=== PATIENT | female | born 1950 | race American Indian/Alaskan Native ===

== ENCOUNTER 2017-03-20 11:43 | Inpatient (IN) | payer MEDICAID ==
[2017-03-20 12:54] LABS: Basophils % (Auto) 0.4 % (0.0-1.8); Eosinophils % (Auto) 0.6 % (0.0-4.3); Hematocrit 33.9 % (30.3-42.9); Hemoglobin 10.7 gm/dl (10.1-14.3); Mean Corpuscular HGB Conc 32 % (30-34); Mean Corpuscular Volume 82 fl (79-97); Platelet Count 173 K/mm3 (140-440); Red Blood Count 4.15 M/mm3 (3.65-5.03); Red Cell Distribution Width 15.9 % (13.2-15.2); White Blood Count 6.9 K/mm3 (4.5-11.0)
[2017-03-20 12:56] LABS: Anion Gap 17 mmol/L; Blood Urea Nitrogen 14 mg/dL (7-17); Calcium 8.8 mg/dL (8.4-10.2); Carbon Dioxide 26 mmol/L (22-30); Chloride 103.3 mmol/L (98-107); Glucose 314 mg/dL (65-100); Potassium 4.8 mmol/L (3.6-5.0); Sodium 141 mmol/L (137-145)
[2017-03-20 12:58] LABS: Mean Corpuscular Hemoglobin 26 pg (28-32)
--- NOTE | 2017-03-20 16:52 | Emergency Department Report ---
ED General Adult HPI - General Chief complaint: Chest Pain Stated complaint: CHEST/HAND PAIN Time Seen by Provider: 03/20/17 16:39 Source: patient Mode of arrival: Ambulatory Limitations: No Limitations - History of Present Illness Initial comments: This is a 66-year-old female. She is previously unknown to me. The patient has been here for 1 month from [facility]. Past medical history includes stroke, heart disease with stent 2, she reports noncompliance with the recommended life vest, and reports that she ran out of her aspirin and Plavix yesterday. She presents to the ER complaining of substernal chest pressure and left-sided chest discomfort. There is no nausea, vomiting or diaphoresis. There is chronic lower extremity swelling, which is not new, worsening or different. There is no diaphoresis. The patient reports that she presented to the ER because her balance bridge assembler up in [place] told her to come to the ER if she had symptoms as she has just described. No recent trips greater than 4 hours. No recent hospitalizations. No recent surgeries. -: Gradual Location: chest, abdomen Radiation: non-radiation Quality: aching Consistency: intermittent Improves with: none Worsens with: none Associated Symptoms: chest pain - Related Data Home Medications Medication Instructions Recorded Confirmed Last Taken Aspirin [Adult Low Dose Aspirin EC] 81 mg PO BID 03/20/17 03/20/17 Unknown AtorvaSTATin [Lipitor] 40 mg PO QDAY 03/20/17 03/20/17 Unknown AtorvaSTATin [Lipitor] 40 mg PO QHS 03/20/17 03/20/17 03/19/17 Clopidogrel [Plavix] 75 mg PO QDAY 03/20/17 03/20/17 Unknown Clopidogrel [Plavix] 75 mg PO QDAY 03/20/17 03/20/17 03/19/17 Enalapril Maleate [Vasotec] 5 mg PO BID 03/20/17 03/20/17 Unknown Enalapril Maleate [Vasotec] 5 mg PO BID 03/20/17 03/20/17 03/19/17 Gabapentin [Neurontin] 300 mg PO BID 03/20/17 03/20/17 Unknown Gabapentin [Neurontin] 300 mg PO BID 03/20/17 03/20/17 03/05/17 Insulin Glargine [Lantus] 0 units SQ QHS 03/20/17 03/20/17 03/19/17 Insulin Glargine,Hum.rec.anlog 41 units SC QHS 03/20/17 03/20/17 Unknown [Lantus Solostar] Insulin Glargine,Hum.rec.anlog 100 unit SQ DAILY 03/20/17 03/20/17 03/20/17 [Lantus Solostar] Insulin Lispro [Humalog 100 0 units SQ AC 03/20/17 03/20/17 03/20/17 UNITS/ML Kwikpen] Insulin Lispro [Humalog 100 10 units SC QDAY 03/20/17 03/20/17 Unknown UNITS/ML Kwikpen] Metformin HCl [Glucophage] 500 mg PO BID 03/20/17 03/20/17 Unknown Metoprolol Xl [Metoprolol 50 mg PO QDAY 03/20/17 03/20/17 Unknown SUCCINATE ER TAB] Metoprolol [Lopressor TAB] 50 mg PO DAILY 03/20/17 03/20/17 03/19/17 metFORMIN [Glucophage] 500 mg PO BID 03/20/17 03/20/17 03/19/17 Allergies Allergy/AdvReac Type Severity Reaction Status Date / Time No Known Allergies Allergy Verified 03/20/17 20:10 ED Review of Systems ROS: Stated complaint: CHEST/HAND PAIN Other details as noted in HPI Constitutional: denies: malaise Eyes: denies: vision change ENT: denies: epistaxis Respiratory: denies: orthopnea Cardiovascular: chest pain Gastrointestinal: abdominal pain Genitourinary: denies: dysuria Musculoskeletal: denies: back pain Skin: denies: lesions Neurological: weakness ED Past Medical Hx - Past Medical History Previous Medical History?: Yes Hx CVA: Yes (effected right side 2016) Hx Diabetes: Yes (insulin dependenet and pills) Additional medical history: right eye glaucoma, cardiac stents x 2 - Surgical History Hx Cholecystectomy: Yes - Social History Smoking Status: Never Smoker Substance Use Type: None - Medications Home Medications: Home Medications Medication Instructions Recorded Confirmed Last Taken Type Aspirin [Adult Low Dose Aspirin EC] 81 mg PO BID 03/20/17 03/20/17 Unknown History AtorvaSTATin [Lipitor] 40 mg PO QDAY 03/20/17 03/20/17 Unknown History AtorvaSTATin [Lipitor] 40 mg PO QHS 03/20/17 03/20/17 03/19/17 History Clopidogrel [Plavix] 75 mg PO QDAY 03/20/17 03/20/17 Unknown History Clopidogrel [Plavix] 75 mg PO QDAY 03/20/17 03/20/17 03/19/17 History Enalapril Maleate [Vasotec] 5 mg PO BID 03/20/17 03/20/17 Unknown History Enalapril Maleate [Vasotec] 5 mg PO BID 03/20/17 03/20/17 03/19/17 History Gabapentin [Neurontin] 300 mg PO BID 03/20/17 03/20/17 Unknown History Gabapentin [Neurontin] 300 mg PO BID 03/20/17 03/20/17 03/05/17 History Insulin Glargine [Lantus] 0 units SQ QHS 03/20/17 03/20/17 03/19/17 History Insulin Glargine,Hum.rec.anlog 41 units SC QHS 03/20/17 03/20/17 Unknown History [Lantus Solostar] Insulin Glargine,Hum.rec.anlog 100 unit SQ DAILY 03/20/17 03/20/17 03/20/17 History [Lantus Solostar] Insulin Lispro [Humalog 100 0 units SQ AC 03/20/17 03/20/17 03/20/17 History UNITS/ML Kwikpen] Insulin Lispro [Humalog 100 10 units SC QDAY 03/20/17 03/20/17 Unknown History UNITS/ML Kwikpen] Metformin HCl [Glucophage] 500 mg PO BID 03/20/17 03/20/17 Unknown History Metoprolol Xl [Metoprolol 50 mg PO QDAY 03/20/17 03/20/17 Unknown History SUCCINATE ER TAB] Metoprolol [Lopressor TAB] 50 mg PO DAILY 03/20/17 03/20/17 03/19/17 History metFORMIN [Glucophage] 500 mg PO BID 03/20/17 03/20/17 03/19/17 History ED Physical Exam - General Limitations: No Limitations General appearance: alert, in no apparent distress - Head Head exam: Present: atraumatic, normocephalic - Eye Eye exam: Present: normal appearance, EOMI. Absent: nystagmus - ENT ENT exam: Present: normal exam, normal orophraynx, mucous membranes moist, normal external ear exam - Neck Neck exam: Present: normal inspection, full ROM. Absent: tenderness, meningismus - Respiratory Respiratory exam: Present: normal lung sounds bilaterally. Absent: respiratory distress, wheezes, rales, rhonchi, stridor, chest wall tenderness, accessory muscle use, decreased breath sounds, prolonged expiratory - Cardiovascular Cardiovascular Exam: Present: normal rhythm, bradycardia, normal heart sounds. Absent: systolic murmur, diastolic murmur, rubs, gallop - GI/Abdominal GI/Abdominal exam: Present: soft, normal bowel sounds. Absent: distended, tenderness, guarding, rebound, rigid, pulsatile mass - Extremities Exam Extremities exam: Present: normal inspection, full ROM, normal capillary refill. Absent: pedal edema, joint swelling, calf tenderness - Back Exam Back exam: Present: normal inspection, full ROM. Absent: tenderness, CVA tenderness (R), CVA tenderness (L), muscle spasm, paraspinal tenderness, vertebral tenderness - Neurological Exam Neurological exam: Present: alert, oriented X3, other (Extraocular movements intact. Tongue midline. No facial droop. Facial sensation intact to light touch in the V1, V2, V3 distribution bilaterally. 5 and 5 strength in 4 extremities.. Sensation is intact to light touch in 4 extremities.). Absent: motor sensory deficit - Psychiatric Psychiatric exam: Present: normal affect, normal mood - Skin Skin exam: Present: warm, dry, intact, normal color. Absent: rash ED Course Vital Signs 03/20/17 03/20/17 03/20/17 12:06 16:16 16:20 Temperature 98.4 F Pulse Rate 59 L 70 67 Respiratory 16 14 16 Rate Blood Pressure 151/65 Blood Pressure [Left] O2 Sat by Pulse 99 99 Oximetry 03/20/17 03/20/17 03/20/17 16:30 16:40 16:50 Temperature Pulse Rate 56 L 55 L 58 L Respiratory 15 16 12 Rate Blood Pressure 161/60 161/60 161/60 Blood Pressure [Left] O2 Sat by Pulse 98 100 100 Oximetry 03/20/17 03/20/17 03/20/17 17:00 17:10 17:29 Temperature Pulse Rate 62 64 64 Respiratory 11 L 16 16 Rate Blood Pressure 161/60 166/71 Blood Pressure 166/71 [Left] O2 Sat by Pulse 100 100 100 Oximetry 03/20/17 20:00 Temperature Pulse Rate 57 L Respiratory 16 Rate Blood Pressure Blood Pressure 150/62 [Left] O2 Sat by Pulse 97 Oximetry - Reevaluation(s) Reevaluation #1: 03/20/17 17:44 case is presented to cardiology, Dr. Morin, who will follow as a consult ED Medical Decision Making - Lab Data Result diagrams: 03/20/17 19:45 03/20/17 18:10 Vital Signs 03/20/17 12:06 Temperature 98.4 F Pulse Rate 59 L Respiratory 16 Rate Blood Pressure 151/65 O2 Sat by Pulse 99 Oximetry Lab Results 03/20/17 03/20/17 03/20/17 Range/Units 12:17 12:24 12:24 WBC 6.9 (4.5-11.0) K/mm3 RBC 4.15 (3.65-5.03) M/mm3 Hgb 10.7 (10.1-14.3) gm/dl Hct 33.9 (30.3-42.9) % MCV 82 (79-97) fl MCH 26 L (28-32) pg MCHC 32 (30-34) % RDW 15.9 H (13.2-15.2) % Plt Count 173 (140-440) K/mm3 Lymph % (Auto) 38.2 H (13.4-35.0) % [place] % (Auto) 8.8 H (0.0-7.3) % Eos % (Auto) 0.6 (0.0-4.3) % Baso % (Auto) 0.4 (0.0-1.8) % Lymph # 2.6 (1.2-5.4) K/mm3 [place] # 0.6 (0.0-0.8) K/mm3 Eos # 0.0 (0.0-0.4) K/mm3 Baso # 0.0 (0.0-0.1) K/mm3 Seg Neutrophils % 52.0 (40.0-70.0) % Seg Neutrophils # 3.6 (1.8-7.7) K/mm3 Sodium 141 (137-145) mmol/L Potassium 4.8 (3.6-5.0) mmol/L Chloride 103.3 (98-107) mmol/L Carbon Dioxide 26 (22-30) mmol/L Anion Gap 17 mmol/L BUN 14 (7-17) mg/dL Creatinine 0.7 (0.7-1.2) mg/dL Estimated GFR > 60 ml/min BUN/Creatinine Ratio 20.00 % Glucose 314 H (65-100) mg/dL POC Glucose 369 H (70-105) Calcium 8.8 (8.4-10.2) mg/dL Troponin T < 0.010 (0.00-0.029) ng/mL 03/20/ Range/Units 15:06 WBC (4.5-11.0) K/mm3 RBC (3.65-5.03) M/mm3 Hgb (10.1-14.3) gm/dl Hct (30.3-42.9) % MCV (79-97) fl MCH (28-32) pg MCHC (30-34) % RDW (13.2-15.2) % Plt Count (140-440) K/mm3 Lymph % (Auto) (13.4-35.0) % [place] % (Auto) (0.0-7.3) % Eos % (Auto) (0.0-4.3) % Baso % (Auto) (0.0-1.8) % Lymph # (1.2-5.4) K/mm3 [place] # (0.0-0.8) K/mm3 Eos # (0.0-0.4) K/mm3 Baso # (0.0-0.1) K/mm3 Seg Neutrophils % (40.0-70.0) % Seg Neutrophils # (1.8-7.7) K/mm3 Sodium (137-145) mmol/L Potassium (3.6-5.0) mmol/L Chloride (98-107) mmol/L Carbon Dioxide (22-30) mmol/L Anion Gap mmol/L BUN (7-17) mg/dL Creatinine (0.7-1.2) mg/dL Estimated GFR ml/min BUN/Creatinine Ratio % Glucose (65-100) mg/dL POC Glucose (70-105) Calcium (8.4-10.2) mg/dL Troponin T < 0.010 (0.00-0.029) ng/mL - EKG Data -: EKG Interpreted by Me - EKG Data 03/20/17 17:28 EKG #1 demonstrates sinus, 64 bpm, poor R-wave progression, T-wave inversions 1 in aVL, abnormal EKG, morphologically not consistent with STEMI, there is no prior. EKG #2 demonstrates sinus bradycardia, T-wave inversions V1, lead aVL, poor R wave progression, nonspecific ST abnormality in the anteroseptal leads. - Radiology Data Radiology results: image reviewed interpreted by me: X-ray of the chest is negative for acute disease - Medical Decision Making Differential diagnosis: GERD, gastritis, pancreatitis, pneumonia, acute coronary syndrome/unstable angina assessment and plan: 66-year-old female who is visiting from out of town, heart disease with stent 2, noncompliant with recommended life vest therapy by her own recollection, with atypical chest pain, and abnormal EKG without prior for comparison. We attempted to contact the patient's [facility] in [place] ([facility]), however medical records department was closed, and we are unable to obtain her old medical records. Clinically doubt pancreatitis, no abdominal tenderness. X-ray of the chest consistent with pneumonia, and patient low risk by well's criteria for pulmonary embolus. Given abnormal EKG, atypical symptoms, noncompliance with recommended outpatient therapy, lack of close outpatient follow-up, patient to be admitted for acute coronary syndrome risk stratification. The case is presented to the Hospital physician, Dr. Velásquez, who graciously accepts the patient to his service. Critical care attestation.: If time is entered above; I have spent that time in minutes in the direct care of this critically ill patient, excluding procedure time. ED Disposition Clinical Impression: Chest pain, Abnormal EKG Disposition: -09 OP ADMIT IP TO THIS HOSP Is pt being admited?: Yes Condition: Stable
[2017-03-20] MEDS ORDERED: CARAFATE PO ONE (17:00)
[2017-03-20] MEDS ORDERED: PEPCID IV ONE (17:00)
[2017-03-20] MEDS ORDERED: ASPIRIN PO ONE (17:00)
[2017-03-20] MEDS ORDERED: ALUM-MAG HYDROX-SIMETH 200-200-20MG/5ML PO ONE (17:00)
[2017-03-20 18:01] LABS: INR 0.94 (0.87-1.13)
--- NOTE | 2017-03-20 18:36 | History and Physical Report ---
History of Present Illness Chief complaint: my chest hurts History of present illness: 66 YO Female with CVA, DM, CAD S/P Stent placement, Cardiomyopathy, Noncompliant with life vest, Noncompliant with medication presents to ED for evaluation. Pt states that she has experienced pain in her chest for the past 1 day with worsening symptoms over the past 4 hours. Pain is 3/10 in severity, epigastric, nonradiating, aching, not worsened with exertion, or relieved with rest, no associated with shortness of breath. Pt denies fever chills, palpitations, NVD, syncope, BRBPR, hemoptysis, productive cough, or trauma. Past History Past Medical History: CAD, diabetes, stroke Past Surgical History: Other (Stent placement) Social history: single. denies: smoking, alcohol abuse, prescription drug abuse , IV drug use Family history: CAD, hypertension Medications and Allergies Allergies Allergy/AdvReac Type Severity Reaction Status Date / Time No Known Allergies Allergy Verified 03/20/17 20:10 Home Medications Medication Instructions Recorded Confirmed Last Taken Type Aspirin [Adult Low Dose Aspirin EC] 81 mg PO BID 03/20/17 03/20/17 Unknown History AtorvaSTATin [Lipitor] 40 mg PO QDAY 03/20/17 03/20/17 Unknown History AtorvaSTATin [Lipitor] 40 mg PO QHS 03/20/17 03/20/17 03/19/17 History Clopidogrel [Plavix] 75 mg PO QDAY 03/20/17 03/20/17 Unknown History Clopidogrel [Plavix] 75 mg PO QDAY 03/20/17 03/20/17 03/19/17 History Enalapril Maleate [Vasotec] 5 mg PO BID 03/20/17 03/20/17 Unknown History Enalapril Maleate [Vasotec] 5 mg PO BID 03/20/17 03/20/17 03/19/17 History Gabapentin [Neurontin] 300 mg PO BID 03/20/17 03/20/17 Unknown History Gabapentin [Neurontin] 300 mg PO BID 03/20/17 03/20/17 03/05/17 History Insulin Glargine [Lantus] 0 units SQ QHS 03/20/17 03/20/17 03/19/17 History Insulin Glargine,Hum.rec.anlog 41 units SC QHS 03/20/17 03/20/17 Unknown History [Lantus Solostar] Insulin Glargine,Hum.rec.anlog 100 unit SQ DAILY 03/20/17 03/20/17 03/20/17 History [Lantus Solostar] Insulin Lispro [Humalog 100 0 units SQ AC 03/20/17 03/20/17 03/20/17 History UNITS/ML Kwikpen] Insulin Lispro [Humalog 100 10 units SC QDAY 03/20/17 03/20/17 Unknown History UNITS/ML Kwikpen] Metformin HCl [Glucophage] 500 mg PO BID 03/20/17 03/20/17 Unknown History Metoprolol Xl [Metoprolol 50 mg PO QDAY 03/20/17 03/20/17 Unknown History SUCCINATE ER TAB] Metoprolol [Lopressor TAB] 50 mg PO DAILY 03/20/17 03/20/17 03/19/17 History metFORMIN [Glucophage] 500 mg PO BID 03/20/17 03/20/17 03/19/17 History Review of Systems Constitutional: no weight loss, no weight gain Ears, nose, mouth and throat: no ear pain, no ear discharge, no tinnitis Breasts: no change in shape, no swelling Cardiovascular: chest pain, no rapid/irregular heart beat, no lightheadedness, no shortness of breath, no dyspnea on exertion, no paroxysmal nocturnal dyspnea Respiratory: no cough, no cough with sputum, no excessive sputum Gastrointestinal: no abdominal pain, no nausea, no vomiting, no diarrhea Genitourinary Female: no dyspareunia, no pelvic pain, no flank pain, no menorrhagia Rectal: no pain, no incontinence, no bleeding Musculoskeletal: no neck stiffness, no neck pain, no shooting arm pain Integumentary: no rash, no pruritis, no redness Neurological: no head injury, no transient paralysis, no paralysis, no parathesias Psychiatric: no anxiety, no memory loss, no change in sleep habits, no sleep disturbances Endocrine: no cold intolerance, no heat intolerance, no polyphagia, no excessive thirst Hematologic/Lymphatic: no easy bruising, no easy bleeding Allergic/Immunologic: no urticaria, no allergic rhinitis, no wheezing Exam - Constitutional Vitals: Temp Pulse Resp BP Pulse Ox 98.4 F 64 16 166/71 100 03/20/17 12:06 03/20/17 17:29 03/20/17 17:29 03/20/17 17:29 03/20/17 17:29 General appearance: Present: obese - EENT Eyes: Present: PERRL ENT: hearing intact, clear oral mucosa - Neck Neck: Present: supple, normal ROM - Respiratory Respiratory effort: normal Respiratory: bilateral: CTA - Cardiovascular Heart Sounds: Present: S1 & S2. Absent: rub, click - Extremities Extremities: pulses symmetrical, No edema Peripheral Pulses: within normal limits - Abdominal General gastrointestinal: Present: soft, non-tender, non-distended, normal bowel sounds Female genitourinary: Present: normal - Integumentary Integumentary: Present: clear, warm, dry - Musculoskeletal Musculoskeletal: gait normal, strength equal bilaterally - Psychiatric Psychiatric: appropriate mood/affect, intact judgment & insight - Neurologic Neurologic: CNII-XII intact, moves all extremities Results - Labs CBC & Chem 7: 03/20/17 19:45 03/20/17 18:10 Labs: Abnormal lab results 03/20/17 03/20/17 03/20/17 Range/Units 12:17 12:24 12:24 MCH 26 L (28-32) pg RDW 15.9 H (13.2-15.2) % Lymph % (Auto) 38.2 H (13.4-35.0) % [place] % (Auto) 8.8 H (0.0-7.3) % Glucose 314 H (65-100) mg/dL POC Glucose 369 H (70-105) Assessment and Plan - Patient Problems (1) ACS (acute coronary syndrome) Current Visit: Yes Status: Acute Plan to address problem: Serial cardiac enzymes, ekg, telemetry, cardiology consulted in ED, Records request from hospital where previous care conducted. (2) Accelerated hypertension Current Visit: Yes Status: Acute Plan to address problem: Resume home medication, monitor bp q shift, (3) Noncompliance Current Visit: Yes Status: Acute Plan to address problem: Pt counseled, (4) Diabetes Current Visit: Yes Status: Acute Qualifiers: Diabetes mellitus type: D Diabetes mellitus complication status: D Diabetes mellitus complication detail: D Diabetic retinopathy severity: D Proliferative retinopathy type: P Diabetes mellitus macular edema: D Diabetes mellitus care home insulin use: D Laterality: L Chronic kidney disease stage: C Plan to address problem: ADA diet, insulin accu check (5) Metabolic syndrome Current Visit: Yes Status: Acute Plan to address problem: Increased physical activity, balanced diet, (6) DVT prophylaxis Current Visit: Yes Status: Acute
[2017-03-20] MEDS ORDERED: DULCOLAX PR PRN (18:48)
[2017-03-20] MEDS ORDERED: MILK OF MAGNESIA PO PRN (18:48)
[2017-03-20] MEDS ORDERED: ZOFRAN IV PRN (18:48)
[2017-03-20] MEDS ORDERED: TYLENOL PO PRN (18:48)
[2017-03-20] MEDS ORDERED: SODIUM CHLORIDE FLUSH SYRINGE 10 ML IV PRN (18:49)
[2017-03-20 19:47] LABS: Anion Gap 19 mmol/L; Blood Urea Nitrogen 13 mg/dL (7-17); Calcium 9.2 mg/dL (8.4-10.2); Carbon Dioxide 24 mmol/L (22-30); Chloride 102.7 mmol/L (98-107); Glucose 181 mg/dL (65-100); Potassium 4.1 mmol/L (3.6-5.0); Sodium 142 mmol/L (137-145)
[2017-03-20 20:04] LABS: Basophils % (Auto) 0.4 % (0.0-1.8); Eosinophils % (Auto) 0.9 % (0.0-4.3); Hematocrit 33.6 % (30.3-42.9); Mean Corpuscular HGB Conc 33 % (30-34); Mean Corpuscular Hemoglobin 26 pg (28-32); Mean Corpuscular Volume 80 fl (79-97); Platelet Count 164 K/mm3 (140-440); Red Blood Count 4.19 M/mm3 (3.65-5.03); Red Cell Distribution Width 15.8 % (13.2-15.2); White Blood Count 6.4 K/mm3 (4.5-11.0)
[2017-03-20] MEDS ORDERED: D50W (25GM) Syringe IV PRN (20:44)
[2017-03-20] MEDS: NOVOLOG SUB-Q SCH (21:27)
--- NOTE | 2017-03-21 07:21 | XRay Report ---
AP CHEST: HISTORY: chest pain AP view of the chest demonstrates a normal mediastinal and cardiac contour with clear lungs and normal bony and soft tissue structures. IMPRESSION: Unremarkable AP chest.
[2017-03-21] MEDS: TOPROL XL PO SCH (09:08)
[2017-03-21] MEDS: NOVOLOG SUB-Q SCH ×4 (09:13→21:37)
[2017-03-21] MEDS: HALFPRIN EC PO SCH ×2 (09:18→21:36)
[2017-03-21] MEDS ORDERED: LEXISCAN IV ONE ×2 (11:25→11:34)
--- NOTE | 2017-03-21 12:28 | Consultation ---
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 She attributes her pain to "heart burn". She recently relocated to [place] from [place]. She has not yet established a direct support staff in [place] but believes she will be in [place] until at least next year. 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 Her direct support staff in [place] told her to go to an ED if she developed cardiac symptoms. She denies any SOB, palpitations, n/v, diaphoresis, dizziness or syncope. On evaluation, her chest pain has resolved. Past History Past Medical History: CAD, diabetes, hypertension, hyperlipidemia, stroke Social history: single. denies: smoking, alcohol abuse, prescription drug abuse , IV drug use Family history: CAD, hypertension Medications and Allergies Allergies Allergy/AdvReac Type Severity Reaction Status Date / Time No Known Allergies Allergy Verified 03/20/17 20:10 Home Medications Medication Instructions Recorded Confirmed Last Taken Type Aspirin [Adult Low Dose Aspirin EC] 81 mg PO BID 03/20/17 03/20/17 Unknown History AtorvaSTATin [Lipitor] 40 mg PO QDAY 03/20/17 03/20/17 Unknown History AtorvaSTATin [Lipitor] 40 mg PO QHS 03/20/17 03/20/17 03/19/17 History Clopidogrel [Plavix] 75 mg PO QDAY 03/20/17 03/20/17 Unknown History Clopidogrel [Plavix] 75 mg PO QDAY 03/20/17 03/20/17 03/19/17 History Enalapril Maleate [Vasotec] 5 mg PO BID 03/20/17 03/20/17 Unknown History Enalapril Maleate [Vasotec] 5 mg PO BID 03/20/17 03/20/17 03/19/17 History Gabapentin [Neurontin] 300 mg PO BID 03/20/17 03/20/17 Unknown History Gabapentin [Neurontin] 300 mg PO BID 03/20/17 03/20/17 03/05/17 History Insulin Glargine [Lantus] 0 units SQ QHS 03/20/17 03/20/17 03/19/17 History Insulin Glargine,Hum.rec.anlog 41 units SC QHS 03/20/17 03/20/17 Unknown History [Lantus Solostar] Insulin Glargine,Hum.rec.anlog 100 unit SQ DAILY 03/20/17 03/20/17 03/20/17 History [Lantus Solostar] Insulin Lispro [Humalog 100 0 units SQ AC 03/20/17 03/20/17 03/20/17 History UNITS/ML Kwikpen] Insulin Lispro [Humalog 100 10 units SC QDAY 03/20/17 03/20/17 Unknown History UNITS/ML Kwikpen] Metformin HCl [Glucophage] 500 mg PO BID 03/20/17 03/20/17 Unknown History Metoprolol Xl [Metoprolol 50 mg PO QDAY 03/20/17 03/20/17 Unknown History SUCCINATE ER TAB] Metoprolol [Lopressor TAB] 50 mg PO DAILY 03/20/17 03/20/17 03/19/17 History metFORMIN [Glucophage] 500 mg PO BID 03/20/17 03/20/17 03/19/17 History Active Meds: Active Medications Acetaminophen (Tylenol) 650 mg PO Q4H PRN PRN Reason: Pain MILD(1-3)/Fever >100.5/SUMMERS Aspirin (Halfprin Ec) 81 mg PO BID [facility] Last Admin: 03/21/17 09:18 Dose: 81 mg Atorvastatin Calcium (Lipitor) 40 mg PO QHS [facility] Bisacodyl (Dulcolax) 10 mg MD QDAY PRN PRN Reason: Constipation unrelieved by MOM Clopidogrel Bisulfate (Plavix) 75 mg PO QDAY [facility] Dextrose (D50w (25gm)) 50 ml IV PRN PRN PRN Reason: Hypoglycemia Insulin Aspart (Novolog) 0 units SUB-Q ACHS CK PRN Reason: Protocol Last Admin: 03/21/17 09:13 Dose: 4 units Magnesium Hydroxide (Milk Of Magnesia) 30 ml PO Q4H PRN PRN Reason: Constipation Metoprolol Succinate (Toprol Xl) 50 mg PO QDAY CK Last Admin: 03/21/17 09:08 Dose: 50 mg Ondansetron HCl (Zofran) 4 mg IV Q8H PRN PRN Reason: N/V unrelieved by Reglan Sodium Chloride (Sodium Chloride Flush Syringe 10 Ml) 10 ml IV PRN PRN PRN Reason: LINE FLUSH Review of Systems Constitutional: no weight loss, no weight gain, no fever, no chills, no sweats Ears, nose, mouth and throat: no ear pain, no nose pain, no sinus pressure, no sinus pain Cardiovascular: chest pain, no orthopnea, no palpitations, no rapid/irregular heart beat, no edema, no syncope, no lightheadedness, no shortness of breath, no dyspnea on exertion, no paroxysmal nocturnal dyspnea, no leg edema Respiratory: no cough, no shortness of breath, no dyspnea on exertion, no congestion, no wheezing, no pain on inspiration Gastrointestinal: indigestion, no abdominal pain, no nausea, no vomiting, no diarrhea, no constipation, no change in bowel habits Genitourinary Female: no dyspareunia, no pelvic pain, no flank pain, no dysuria , no urinary frequency Musculoskeletal: muscle weakness (right sided residual from CVA ), no neck stiffness, no neck pain, no shooting arm pain, no arm numbness/tingling, no low back pain, no shooting leg pain, no leg numbness/tingling, no redness of joints Integumentary: no rash, no pruritis, no redness, no sores, no wounds Neurological: weakness (right-sided residual from CVA ), no head injury, no paralysis, no parathesias, no numbness, no tingling, no seizures, no syncope Psychiatric: no anxiety Endocrine: no cold intolerance, no heat intolerance Hematologic/Lymphatic: no easy bruising, no easy bleeding Allergic/Immunologic: no urticaria, no wheezing Physical Examination Vital Signs Temp Pulse Resp BP Pulse Ox 98.4 F 59 L 16 151/65 99 03/20/17 12:06 03/20/17 12:06 03/20/17 12:06 03/20/17 12:06 03/20/17 12:06 General appearance: no acute distress HEENT: Positive: PERRL, Normocephaly, Mucus Membranes Moist Neck: Positive: neck supple, trachea midline Cardiac: Positive: Reg Rate and Rhythm, S1/S2 Lungs: Positive: clear to auscultation Neuro: Positive: Grossly Intact, Other (right-sided weakness) Skin: Positive: Clear. Negative: Rash, Wound Musculoskeletal: No Fluid Collection, No Pain, Normal Range of Motion Extremities: Absent: edema Results 03/20/17 19:45 03/20/17 18:10 CBC 03/20/17 Range/Units 19:45 WBC 6.4 (4.5-11.0) K/mm3 RBC 4.19 (3.65-5.03) M/mm3 Hgb 11.0 (10.1-14.3) gm/dl Hct 33.6 (30.3-42.9) % Plt Count 164 (140-440) K/mm3 Lymph # 2.5 (1.2-5.4) K/mm3 [place] # 0.6 (0.0-0.8) K/mm3 Eos # 0.1 (0.0-0.4) K/mm3 Baso # 0.0 (0.0-0.1) K/mm3 - Imaging and Cardiology Echo: pending EKG: image reviewed EKG interpretations - Telemetry EKG Rhythm: Sinus Rhythm - EKG Sinus rhythms and dysrhythmias: sinus rhythm Repolarization changes or abnormalities: nonspecific abnormality, ST segment, and/or T wave Assessment and Plan Assessment: Chest pain, atypical - currently resolved; troponin negative for AMI; ECG with NAF H/o CAD s/p PCI H/o CMP - LifeVest since 06/2016 H/o CVA in 09/2016 with residual right-sided weakness HTN HLP DM Noncompliance Plan: Cont home ASA, plavix, lipitor, toprol XL. Resume home ACEI. Obtain echo. Proceed with lexiscan MPI stress test this AM. Await findings. Assessment and plan reviewed with pt at bedside. The patient has been seen in conjunction with Dr. Remington Martinez who agrees with the assessment and plan of care.
[2017-03-21] MEDS: PLAVIX PO SCH (12:50)
--- NOTE | 2017-03-21 13:03 | Progress Note ---
Assessment and Plan Assessment and plan: Atypical chest pain History of CAD status post stent, on life vest History of CVA Hypertension Hyperlipidemia Medications no complaints Cardiomyopathy - Cardiac enzymes were negative, EKG NAF - Resume home medications - Cardiology consult appreciated - Patient will have stress test tomorrow Prophylaxis - Lovenox Disposition - Continue inpatient care History Interval history: Patient was seen and evaluated this morning, chest pain resolved. Hospitalist Physical - Physical exam Narrative exam: Not in cardiopulmonary distress. The patient appeared well nourished and normally developed. Vital signs as documented. Head exam is unremarkable. No scleral icterus . Neck is without jugular venous distension, thyromegaly, or carotid bruits. Lungs are clear to auscultation. Cardiac exam reveals regular rate and Rhythm. First and second heart sounds normal. No murmurs, rubs or gallops. Abdominal exam reveals normal bowel sounds, no masses, no organomegaly and no aortic enlargement. Extremities are nonedematous and both femoral and pedal pulses are normal. 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 No focal weakness. - Constitutional Vitals: Temp Pulse Resp BP Pulse Ox 97.7 F 70 18 147/71 97 03/21/17 08:47 03/21/17 11:37 03/21/17 08:47 03/21/17 11:37 03/21/17 08:47 General appearance: Present: no acute distress Results - Labs CBC & Chem 7: 03/20/17 19:45 03/20/17 18:10 Labs: Laboratory Last Values WBC 6.4 K/mm3 (4.5-11.0) 03/20/17 19:45 RBC 4.19 M/mm3 (3.65-5.03) 03/20/17 19:45 Hgb 11.0 gm/dl (10.1-14.3) 03/20/17 19:45 Hct 33.6 % (30.3-42.9) 03/20/17 19:45 MCV 80 fl (79-97) 03/20/17 19:45 MCH 26 pg (28-32) L 03/20/17 19:45 MCHC 33 % (30-34) 03/20/17 19:45 RDW 15.8 % (13.2-15.2) H 03/20/17 19:45 Plt Count 164 K/mm3 (140-440) 03/20/17 19:45 Lymph % (Auto) 38.6 % (13.4-35.0) H 03/20/17 19:45 [place] % (Auto) 9.2 % (0.0-7.3) H 03/20/17 19:45 Eos % (Auto) 0.9 % (0.0-4.3) 03/20/17 19:45 Baso % (Auto) 0.4 % (0.0-1.8) 03/20/17 19:45 Lymph # 2.5 K/mm3 (1.2-5.4) 03/20/17 19:45 [place] # 0.6 K/mm3 (0.0-0.8) 03/20/17 19:45 Eos # 0.1 K/mm3 (0.0-0.4) 03/20/17 19:45 Baso # 0.0 K/mm3 (0.0-0.1) 03/20/17 19:45 Seg Neutrophils % 50.9 % (40.0-70.0) 03/20/17 19:45 Seg Neutrophils # 3.2 K/mm3 (1.8-7.7) 03/20/17 19:45 PT 12.5 Sec. (12.2-14.9) 03/20/17 17:05 INR 0.94 (0.87-1.13) 03/20/17 17:05 Sodium 142 mmol/L (137-145) 03/20/17 18:10 Potassium 4.1 mmol/L (3.6-5.0) 03/20/17 18:10 Chloride 102.7 mmol/L (98-107) 03/20/17 18:10 Carbon Dioxide 24 mmol/L (22-30) 03/20/17 18:10 Anion Gap 19 mmol/L 03/20/17 18:10 BUN 13 mg/dL (7-17) 03/20/17 18:10 Creatinine 0.5 mg/dL (0.7-1.2) L 03/20/17 18:10 Estimated GFR > 60 ml/min 03/20/17 18:10 BUN/Creatinine Ratio 26.00 % 03/20/17 18:10 Glucose 181 mg/dL (65-100) H 03/20/17 18:10 POC Glucose 174 (70-105) H 03/20/17 21:13 Hemoglobin A1c 11.3 % (4-6) H 03/20/17 18:10 Calcium 9.2 mg/dL (8.4-10.2) 03/20/17 18:10 Troponin T < 0.010 ng/mL (0.00-0.029) 03/21/17 00:47 NT-Pro-B Natriuret Pep 347.7 pg/mL (0-900) 03/20/17 18:10 Lipase 21 units/L (13-60) 03/20/17 17:05
--- NOTE | 2017-03-21 18:57 | Treadmill Report ---
NUCLEAR STRESS TEST REPORT The patient is brought to the Cardiology lab and a nuclear stress test is performed by administering intravenous Lexiscan. The patient tolerated the procedure well. Post-stress images reveal reduced perfusion in the anteroapical region, which is mostly fixed with mild reversibility consistent with previous infarction in this region with sergey-infarction ischemia. Accompanying gated study shows anteroapical hypokinesis and calculated ejection fraction of 37%. IMPRESSION: 1. Abnormal nuclear scan. 2. Mostly fixed anteroapical defect with mild reversibility suggestive of sergey-infarction ischemia. Accompanying gated study shows anteroapical hypokinesis with a calculated ejection fraction of 37%. 3. Suggest clinical correlation. JOB# [id number] KB/NTS
[2017-03-21] MEDS: ZESTRIL PO SCH (21:37)
[2017-03-22 06:16] LABS: Basophils % (Auto) 0.4 % (0.0-1.8); Hematocrit 35.3 % (30.3-42.9); Hemoglobin 11.5 gm/dl (10.1-14.3); Mean Corpuscular HGB Conc 33 % (30-34); Mean Corpuscular Hemoglobin 26 pg (28-32); Mean Corpuscular Volume 80 fl (79-97); Platelet Count 160 K/mm3 (140-440); Red Blood Count 4.41 M/mm3 (3.65-5.03); Red Cell Distribution Width 15.4 % (13.2-15.2); White Blood Count 6.1 K/mm3 (4.5-11.0)
[2017-03-22 06:24] LABS: Anion Gap 15 mmol/L; BUN/Creatinine Ratio 18.33; Blood Urea Nitrogen 11 mg/dL (7-17); Calcium 9.1 mg/dL (8.4-10.2); Carbon Dioxide 26 mmol/L (22-30); Chloride 103.9 mmol/L (98-107); Glucose 206 mg/dL (65-100); Potassium 4.3 mmol/L (3.6-5.0); Sodium 141 mmol/L (137-145)
[2017-03-22] MEDS: NOVOLOG SUB-Q SCH ×3 (08:32→16:30)
[2017-03-22] MEDS: PLAVIX PO SCH (09:45)
[2017-03-22] MEDS: HALFPRIN EC PO SCH (09:45)
[2017-03-22] MEDS: ZESTRIL PO SCH (10:00)
[2017-03-22] MEDS: TOPROL XL PO SCH (10:00)
--- NOTE | 2017-03-22 12:48 | Progress Note ---
Assessment and Plan Assessment: Chest pain, atypical - currently resolved; troponin negative for AMI; ECG with NAF H/o CAD s/p PCI H/o CMP - LifeVest since 06/2016 H/o CVA in 09/2016 with residual right-sided weakness HTN HLP DM Noncompliance Plan: S/p lexiscan MPI stress test yesterday, which showed mostly fixed anteroapical defect with mild reversibility suggestive of sergey-infarction ischemia, anteroapical hypokinesis, EF 37%. Cont with medical management. Echo reviewed -EF 45-50%, anterior and anterolateral hypokinesis, pseudonormalization, mild to moderate MR, mild TR Cont ASA, plavix, lipitor, toprol XL, ACEI. Currently stable cardiac status. Chest pain resolved. Pt may discharge home from cardiology standpoint. Recommend follow up in our office with Kristen Lutz NP, within 2 weeks of hospital discharge ([phone]). Assessment and plan reviewed with pt at bedside. The patient has been seen in conjunction with Dr. Remington Martinez who agrees with the assessment and plan of care. Subjective Date of service: 03/22/17 Principal diagnosis: chest pain, atypical Interval history: Pt resting comfortably, no complaints. VSS. Objective Last Vital Signs Temp 97.9 F 03/22/17 07:00 Pulse 57 L 03/22/17 07:00 Resp 20 03/22/17 08:35 BP 115/57 03/22/17 07:00 Pulse Ox 96 03/22/17 11:05 - Physical Examination General: Appears Well, No Apparent Distress HEENT: Positive: PERRL, Normocephaly, Mucus Membranes Moist Neck: Positive: neck supple, trachea midline Cardiac: Positive: Reg Rate and Rhythm, S1/S2, Systolic Murmur Lungs: Positive: clear to auscultation Neuro: Positive: Grossly Intact, Other (right-sided weakness) Skin: Positive: Clear. Negative: Rash, Wound Musculoskeletal: No Fluid Collection, No Pain, Normal Range of Motion Extremities: Absent: edema - Labs and Meds CBC 03/22/17 Range/Units 05:42 WBC 6.1 (4.5-11.0) K/mm3 RBC 4.41 (3.65-5.03) M/mm3 Hgb 11.5 (10.1-14.3) gm/dl Hct 35.3 (30.3-42.9) % Plt Count 160 (140-440) K/mm3 Lymph # 1.5 (1.2-5.4) K/mm3 [place] # 0.7 (0.0-0.8) K/mm3 Eos # 0.1 (0.0-0.4) K/mm3 Baso # 0.0 (0.0-0.1) K/mm3 Comprehensive Metabolic Panel 03/22/17 Range/Units 05:42 Sodium 141 (137-145) mmol/L Potassium 4.3 (3.6-5.0) mmol/L Chloride 103.9 (98-107) mmol/L Carbon Dioxide 26 (22-30) mmol/L BUN 11 (7-17) mg/dL Creatinine 0.6 L (0.7-1.2) mg/dL Glucose 206 H (65-100) mg/dL Calcium 9.1 (8.4-10.2) mg/dL - Imaging and Cardiology EKG: image reviewed Pharmacologic stress test: report reviewed (03/21/2017: mostly fixed anteroapical defect with mild reversibility suggestive of sergey-infarction ischemia, anteroapical hypokinesis, EF 37%) Echo: report reviewed (03/21/2017: EF 45-50%, anterior and anterolateral hypokinesis, pseudonormalization, mild to moderate MR, mild TR) - Telemetry EKG Rhythm: Sinus Rhythm - EKG Sinus rhythms and dysrhythmias: sinus rhythm Repolarization changes or abnormalities: nonspecific abnormality, ST segment, and/or T wave
[2017-03-22 12:56] VITALS: BP 150/68
--- NOTE | 2017-03-22 12:59 | Discharge Summary ---
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 Pt states that she has experienced pain in her chest for the past 1 day with worsening symptoms over the past 4 hours. Pain is 3/10 in severity, epigastric, nonradiating, aching, not worsened with exertion, or relieved with rest, no associated with shortness of breath. Pt denies fever chills, palpitations, NVD, syncope, BRBPR, hemoptysis, productive cough, or trauma. Patient was admitted to the floor her cardiac medications were restarted and lexiscan stress test was done, which showed mostly fixed anteroapical defect with mild reversibility suggestive of sergey-infarction ischemia, anteroapical hypokinesis, EF 37%Cardiology recommended continue with medical management. Echo EF 45-50%, anterior and anterolateral hypokinesis, pseudonormalization, mild to moderate MR, mild TR Cont ASA, plavix, lipitor, toprol XL, ACEI. scheduled to have follow up in our office with Kristen Lutz NP, within 2 weeks of hospital discharge ([phone]) . Disposition: TO HOME OR SELFCARE Time spent for discharge: 31 minutes - Discharge Diagnoses (1) Accelerated hypertension Status: Acute (2) Chest pain Status: Acute Qualifiers: Chest pain type: C Ischemic chest pain type: I (3) Diabetes Status: Acute Qualifiers: Diabetes mellitus type: D Diabetes mellitus complication status: D Diabetes mellitus complication detail: D Diabetic retinopathy severity: D Proliferative retinopathy type: P Diabetes mellitus macular edema: D Diabetes mellitus detention insulin use: D Laterality: L Chronic kidney disease stage: C (4) Metabolic syndrome Status: Acute (5) Noncompliance Status: Acute Core Measure Documentation - Palliative Care Palliative Care/ Comfort Measures: Not Applicable - Core Measures Any of the following diagnoses?: none - Heart Failure Discharge Requirements LIZA/ARB for LVSD if EF <40%: Yes Beta bob at discharge: Yes Exam - Physical Exam Narrative exam: Not in cardiopulmonary distress. The patient appeared well nourished and normally developed. Vital signs as documented. Head exam is unremarkable. No scleral icterus . Neck is without jugular venous distension, thyromegaly, or carotid bruits. Lungs are clear to auscultation. Cardiac exam reveals regular rate and Rhythm. First and second heart sounds normal. No murmurs, rubs or gallops. Abdominal exam reveals normal bowel sounds, no masses, no organomegaly and no aortic enlargement. Extremities are nonedematous and both femoral and pedal pulses are normal. WRAPPER HAND: Alert and oriented 3. No focal weakness. - Constitutional Vitals: Temp Pulse Resp BP Pulse Ox 97.9 F 57 L 20 115/57 96 03/22/17 07:00 03/22/17 07:00 03/22/17 08:35 03/22/17 07:00 03/22/17 11:05 Plan Activity: no restrictions Diet: low cholesterol, low salt, diabetic Follow up with: [facility] [Provider Group] - 14 Days PRIMARY CARE,MD [Primary Care Provider] - 7 Days Prescriptions: Insulin Glargine,Hum.rec.anlog [Lantus Solostar] 41 units SC QHS #1 insuln.pen Aspirin [Adult Low Dose Aspirin EC] 81 mg PO BID #30 tablet. AtorvaSTATin [Lipitor] 40 mg PO QDAY #30 tablet Clopidogrel [Plavix] 75 mg PO QDAY 30 Days Gabapentin [Neurontin] 300 mg PO BID #60 capsule Insulin Lispro [Humalog 100 UNITS/ML Kwikpen] 10 units SC QDAY #1 insuln.pen Lisinopril [Zestril TAB] 5 mg PO DAILY #30 tablet metFORMIN [Glucophage] 500 mg PO BID #60 tablet Metoprolol Xl [Metoprolol SUCCINATE ER TAB] 50 mg PO QDAY #30 tablet
--- NOTE | 2017-03-27 09:41 | Query- Chest Pain ---
Deaaleah Narvaez____Ant Date:___03/27/17 Upper Shaper/CDS: Krysta / Brandon Phone#:___[phone] Exercise your independent professional judgment when responding to query. Questions asked do not imply a particular answer is desired or expected. We greatly appreciate your clarification on this issue. Clinical Documentation States: 66 year old female was admitted on 03/20/17. The discharge summary(Dr. Cain) states " 66 YO Female with CVA, DM, CAD S/P Stent placement, Cardiomyopathy, Noncompliant with life vest, Noncompliant with medication presents to ED for evaluation. Patient was admitted to the floor her cardiac medications were restarted and lexiscan stress test was done, which showed mostly fixed anteroapical defect with mild reversibility suggestive of sergey-infarction ischemia, anteroapical hypokinesis, EF 37%Cardiology recommended continue with medical management. Echo EF 45-50%, anterior and anterolateral hypokinesis, pseudonormalization, mild to moderate MR, mild TR Discharge Diagnoses (2) Chest pain " Please document the etiology of Chest Pain: [ ] Myocardial Infarction [ ] Pneumonia [ ] Mediastinitis [ ] Costochondritis [ ] Pulmonary Embolism [x ] Coronary Artery Disease [ ] GERD [ ] Other: [ ] Comment/Explanation: Present on Admission: [ x] Yes (Y) [ ] Clinically undeterminable (W) [ ] No(N) Please document response in your Progress Notes and/or Discharge Summary and indicate if the condition was present on admission. CHRISTIANAD
== END 2017-03-22 16:52 | disposition home or self-care (01) | DRG 303 ==
LOC: ED 11:43 → 4A 18:48
PROVIDERS: ADMIT Internal Medicine; ATTEND Internal Medicine
DX: I25.10 Atherosclerotic heart disease of native coronary artery without angina pectoris (principal); E11.9 Type 2 diabetes mellitus without complications; E88.81 Metabolic syndrome and other insulin resistance; E78.5 Hyperlipidemia, unspecified; I42.9 Cardiomyopathy, unspecified; I24.9 Acute ischemic heart disease, unspecified; H40.9 Unspecified glaucoma; Z86.73 Personal history of transient ischemic attack (TIA), and cerebral infarction without residual deficits; Z90.49 Acquired absence of other specified parts of digestive tract; Z98.61 Coronary angioplasty status; Z82.49 Family history of ischemic heart disease and other diseases of the circulatory system; Z91.19 Patient's noncompliance with other medical treatment and regimen
CPT/HCPCS: 36415; 71010; 78452; 80048; 82962; 83036; 83690; 83880; 84484; 85025; 85610; 93005; 93010; 93017; 93306; 96374; 96375; 99285; A9270-GY; A9502; J1815; J2785

== ENCOUNTER 2017-05-22 12:19 | Emergency (ER) | payer MEDICAID ==
[2017-05-22 12:31] VITALS: BP 147/72
[2017-05-22 13:05] LABS: Basophils % (Auto) 0.4 % (0.0-1.8); Eosinophils % (Auto) 0.2 % (0.0-4.3); Hematocrit 38.4 % (30.3-42.9); Hemoglobin 12.2 gm/dl (10.1-14.3); Mean Corpuscular HGB Conc 32 % (30-34); Mean Corpuscular Hemoglobin 26 pg (28-32); Mean Corpuscular Volume 82 fl (79-97); Platelet Count 197 K/mm3 (140-440); Red Blood Count 4.69 M/mm3 (3.65-5.03); Red Cell Distribution Width 14.7 % (13.2-15.2); White Blood Count 6.6 K/mm3 (4.5-11.0)
[2017-05-22 13:22] LABS: Anion Gap 21 mmol/L; BUN/Creatinine Ratio 20; Blood Urea Nitrogen 14 mg/dL (7-17); Calcium 10.3 mg/dL (8.4-10.2); Carbon Dioxide 25 mmol/L (22-30); Chloride 95.7 mmol/L (98-107); Potassium 4.9 mmol/L (3.6-5.0); Sodium 137 mmol/L (137-145)
[2017-05-22 13:33] LABS: Glucose 545 mg/dL (65-100)
== END 2017-05-22 18:45 | disposition left against medical advice (07) ==
LOC: ED 12:19
DX: R07.9 Chest pain, unspecified (principal); Z53.21 Procedure and treatment not carried out due to patient leaving prior to being seen by health care provider
CPT/HCPCS: 36415; 80048; 84484; 85025; 93005; 93010

== ENCOUNTER 2017-05-27 09:40 | Emergency (ER) | payer SELFPAY ==
--- NOTE | 2017-05-27 10:27 | Emergency Department Report ---
Chief Complaint: Abdominal Pain Stated Complaint: BELLIEACHE, HEART TROUBLE Time Seen by Provider: 05/27/17 10:25 - HPI History of Present Illness: Patient here reports that she has stomachache and has not had a bowel movement for 13 days. She says her stomach feels crampy and is 8 out of 10. She said she also has dizziness that she has heart problem. 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 Patient has a history of diabetes and she is on insulin she's had a heart attack in the past. She is currently denying any chest pain or shortness of breath but reports that she feels dizzy. Has any numbness or tingling to extremities. Denies any nausea or vomiting. - ROS Review of Systems: All systems are negative unless stated in HPI above - Exam Vital Signs: Vital Signs 05/27/17 10:18 Temperature 98.4 F Pulse Rate 87 Respiratory 18 Rate Blood Pressure 126/74 O2 Sat by Pulse 98 Oximetry Physical Exam: Gen.: This is a 66-year-old female well-nourished well-developed in no acute distress Abdomen: Positive bowel sounds in all quadrant. Tender to palpate. No peritoneal signs. Negative CVA tenderness Cardiovascular: S1, S2. Regular rate rhythm MSE screening note: Focused history and physical exam performed. Due to findings the following was ordered: ED Medical Decision Making - Medical Decision Making MDM: Patient screened by provider in triage area. Appropriate protocol initiated and patient to be seen in main ED by provider ED Disposition for MSE Condition: Stable Instructions: Abdominal Pain (ED)
--- NOTE | 2017-05-27 11:22 | XRay Report ---
ABDOMEN RADIOGRAPHS INDICATION: No bowel movement for 13 days. COMPARISON: None similar. FINDINGS: Frontal abdominal radiographs demonstrate nonobstructive bowel gas pattern. Mild to moderate colonic and rectosigmoid stool. Few right-sided phleboliths. Probable cholecystectomy clips. No focal suspicious calcifications, pneumatosis or pneumoperitoneum. Clear visualized lung bases. Mild lumbar degenerative changes. CONCLUSION: Possible constipation and few other incidental findings, as above. Thank you for the opportunity to participate in this patient's care.
[2017-05-27 11:57] LABS: Basophils % (Auto) 0.4 % (0.0-1.8); Eosinophils % (Auto) 0.2 % (0.0-4.3); Hematocrit 39.7 % (30.3-42.9); Hemoglobin 12.6 gm/dl (10.1-14.3); Mean Corpuscular HGB Conc 32 % (30-34); Mean Corpuscular Volume 82 fl (79-97); Platelet Count 197 K/mm3 (140-440); Red Blood Count 4.88 M/mm3 (3.65-5.03); Red Cell Distribution Width 14.9 % (13.2-15.2); White Blood Count 6.6 K/mm3 (4.5-11.0)
[2017-05-27 12:02] LABS: Mean Corpuscular Hemoglobin 26 pg (28-32)
[2017-05-27 12:05] LABS: Alanine Aminotransferase 12 units/L (7-56); Albumin 4.2 g/dL (3.9-5); Albumin/Globulin Ratio 1.2 %; Alkaline Phosphatase 92 units/L (35-129); Anion Gap 22 mmol/L; BUN/Creatinine Ratio 26; Blood Urea Nitrogen 18 mg/dL (7-17); Calcium 9.6 mg/dL (8.4-10.2); Carbon Dioxide 24 mmol/L (22-30); Chloride 92.5 mmol/L (98-107); Glucose 459 mg/dL (65-100); Lipase 19 units/L (13-60); Potassium 4.6 mmol/L (3.6-5.0); Sodium 134 mmol/L (137-145); Total Protein 7.8 g/dL (6.3-8.2)
[2017-05-27] MEDS ORDERED: CEPHULAC PO ONE (14:47)
--- NOTE | 2017-05-27 14:54 | Emergency Department Report ---
HPI - General Chief Complaint: Abdominal Pain Time Seen by Provider: 05/27/17 10:25 - HPI HPI: Room 24 The patient is a 66-year-old female presented with a chief complaint of constipation. The patient states she has been constipated for the past 13 days. Patient denies nausea or vomiting. Patient denies fever. Patient states she has abdominal discomfort from constipation Location: Abdomen Duration: 13 days Quality: Discomfort Severity: Moderate Modifying factors: [see above] Context: [see above] Mode of transportation: [not driving] ED Past Medical Hx - Past Medical History Hx CVA: Yes (effected right side 2016) Hx Heart Attack/AMI: Yes Hx Diabetes: Yes (insulin dependenet and pills) Additional medical history: right eye glaucoma - Surgical History Past Surgical History?: Yes Hx Coronary Stent: Yes Hx Cholecystectomy: Yes - Family History Family history: no significant - Social History Smoking Status: Never Smoker Substance Use Type: None - Medications Home Medications: Home Medications Medication Instructions Recorded Confirmed Last Taken Type AtorvaSTATin [Lipitor] 40 mg PO QHS 03/20/17 03/20/17 03/19/17 History Clopidogrel [Plavix] 75 mg PO QDAY 03/20/17 03/20/17 03/19/17 History Gabapentin [Neurontin] 300 mg PO BID 03/20/17 03/20/17 03/05/17 History Insulin Glargine [Lantus] 0 units SQ QHS 03/20/17 03/20/17 03/19/17 History Insulin Glargine,Hum.rec.anlog 100 unit SQ DAILY 03/20/17 03/20/17 03/20/17 History [Lantus Solostar] Insulin Lispro [Humalog 100 0 units SQ AC 03/20/17 03/20/17 03/20/17 History UNITS/ML Kwikpen] Metformin HCl [Glucophage] 500 mg PO BID 03/20/17 03/20/17 Unknown History Aspirin [Adult Low Dose Aspirin EC] 81 mg PO BID #30 tablet. 03/22/17 Unknown Rx AtorvaSTATin [Lipitor] 40 mg PO QDAY #30 tablet 03/22/17 Unknown Rx Clopidogrel [Plavix] 75 mg PO QDAY 30 Days 03/22/17 Unknown Rx Gabapentin [Neurontin] 300 mg PO BID #60 capsule 03/22/17 Unknown Rx Insulin Glargine,Hum.rec.anlog 41 units SC QHS #1 insuln.pen 03/22/17 Unknown Rx [Lantus Solostar] Insulin Lispro [Humalog 100 10 units SC QDAY #1 insuln.pen 03/22/17 Unknown Rx UNITS/ML Kwikpen] Lisinopril [Zestril TAB] 5 mg PO DAILY #30 tablet 03/22/17 Unknown Rx Metoprolol Xl [Metoprolol 50 mg PO QDAY #30 tablet 03/22/17 Unknown Rx SUCCINATE ER TAB] metFORMIN [Glucophage] 500 mg PO BID #60 tablet 03/22/17 Unknown Rx Docusate Sodium [Colace] 100 mg PO BID #60 capsule 05/27/17 Unknown Rx Lactulose [Cephulac] 20 gm PO QDAY #90 oral.liqd 05/27/17 Unknown Rx ED Review of Systems ROS: Stated complaint: BELLIEACHE, HEART TROUBLE Other details as noted in HPI Comment: All other systems reviewed and negative Constitutional: denies: chills, fever Eyes: denies: eye pain, eye discharge, vision change ENT: denies: ear pain, throat pain Respiratory: denies: cough, shortness of breath, wheezing Cardiovascular: denies: chest pain, palpitations Endocrine: no symptoms reported Gastrointestinal: abdominal pain, constipation. denies: nausea, vomiting, diarrhea Genitourinary: denies: urgency, dysuria, discharge Musculoskeletal: denies: back pain, joint swelling, arthralgia Skin: denies: rash, lesions Neurological: denies: headache, weakness, paresthesias Psychiatric: denies: anxiety, depression Hematological/Lymphatic: denies: easy bleeding, easy bruising Physical Exam - Physical Exam Vital Signs: Vital Signs 05/27/17 05/27/17 10:18 14:21 Temperature 98.4 F 97.6 F Pulse Rate 87 69 Respiratory 18 18 Rate Blood Pressure 126/74 Blood Pressure 152/64 [Right] O2 Sat by Pulse 98 99 Oximetry Physical Exam: GENERAL: The patient is well-developed well-nourished female lying on stretcher not appearing to be in acute distress. [] HEENT: Normocephalic. Atraumatic. Extraocular motions are intact. Patient has moist mucous membranes. NECK: Supple. Trachea midline CHEST/LUNGS: Clear to auscultation. There is no respiratory distress noted. HEART/CARDIOVASCULAR: Regular. There is no tachycardia. There is no gallop rub or murmur. ABDOMEN: Abdomen is soft, with discomfort to palpation. Patient has normal bowel sounds. There is no guarding SKIN: There is no rash. There is no edema. There is no diaphoresis. NEURO: The patient is awake, alert, and oriented. The patient is cooperative. The patient has normal speech MUSCULOSKELETAL: There is no evidence of acute injury. RECTAL: Semi-soft brown stool in the rectal vault. Small amount removed manually ED Course Vital Signs 05/27/17 05/27/17 10:18 14:21 Temperature 98.4 F 97.6 F Pulse Rate 87 69 Respiratory 18 18 Rate Blood Pressure 126/74 Blood Pressure 152/64 [Right] O2 Sat by Pulse 98 99 Oximetry - Reevaluation(s) Reevaluation #1: 05/27/17 17:43 Patient feels much improved after very large bowel movement 05/27/17 18:39 Accu-Chek improved to 291 ED Medical Decision Making - Lab Data Result diagrams: 05/27/17 11:15 05/27/17 11:15 Laboratory Tests 05/27/17 05/27/17 05/27/17 11:15 11:15 13:13 WBC 6.6 RBC 4.88 Hgb 12.6 Hct 39.7 MCV 82 MCH 26 L MCHC 32 RDW 14.9 Plt Count 197 Lymph % (Auto) 29.7 [place] % (Auto) 8.7 H Eos % (Auto) 0.2 Baso % (Auto) 0.4 Lymph # 2.0 [place] # 0.6 Eos # 0.0 Baso # 0.0 Seg Neutrophils % 61.0 Seg Neutrophils # 4.0 Sodium 134 L Potassium 4.6 Chloride 92.5 L Carbon Dioxide 24 Anion Gap 22 BUN 18 H Creatinine 0.7 Estimated GFR > 60 BUN/Creatinine Ratio 26 Glucose 459 H POC Glucose Calcium 9.6 Total Bilirubin 0.40 AST 12 ALT 12 Alkaline Phosphatase 92 Troponin T < 0.010 < 0.010 Total Protein 7.8 Albumin 4.2 Albumin/Globulin Ratio 1.2 Lipase 19 05/27/17 05/27/17 05/27/17 15:46 16:01 17:31 WBC RBC Hgb Hct MCV MCH MCHC RDW Plt Count Lymph % (Auto) [place] % (Auto) Eos % (Auto) Baso % (Auto) Lymph # [place] # Eos # Baso # Seg Neutrophils % Seg Neutrophils # Sodium Potassium Chloride Carbon Dioxide Anion Gap BUN Creatinine Estimated GFR BUN/Creatinine Ratio Glucose POC Glucose 437 H 413 H Calcium Total Bilirubin AST ALT Alkaline Phosphatase Troponin T < 0.010 Total Protein Albumin Albumin/Globulin Ratio Lipase - EKG Data -: EKG Interpreted by Me EKG shows normal: sinus rhythm Rate: normal - EKG Data When compared to previous EKG there are: no significant change Interpretation: unchanged when compared t (05/22/2017) - Radiology Data Radiology results: image reviewed (abdominal x-ray 2 view) interpreted by me: Abdominal x-ray 2 view-constipation. No free air Abdominal x-ray 2 view (read by radiologist)-possible constipation a few other incidental findings. All to moderate colonic and rectosigmoid stool. Abdominal radiographs demonstrate nonobstructive bowel gas pattern. - Differential Diagnosis constipation, fecal impaction Critical care attestation.: If time is entered above; I have spent that time in minutes in the direct care of this critically ill patient, excluding procedure time. ED Disposition Clinical Impression: Constipation, Hyperglycemia Disposition: DC-01 TO HOME OR SELFCARE Is pt being admited?: No Does the pt Need Aspirin: No Condition: Stable Instructions: Abdominal Pain (ED) Additional Instructions: Return to the emergency department immediately should you develop worsening symptoms, fever, inability to tolerate food or liquid or any other concerns. Prescriptions: Docusate Sodium [Colace] 100 mg PO BID #60 capsule Lactulose [Cephulac] 20 gm PO QDAY #90 oral.liqd Referrals: PRIMARY MD STUART [Primary Care Provider] - 3-5 Days CHARLES CLARK MD [Staff Physician] - 3-5 Days (Dr. Clark is a straightening machine operator. Please follow-up with him for further evaluation) Time of Disposition: 18:39
[2017-05-27] MEDS ORDERED: NACL 0.9% 500 ML 500 ML IV ONE (16:22)
[2017-05-27 18:52] VITALS: BP 144/68
== END 2017-05-27 18:58 | disposition home or self-care (01) ==
LOC: ED 09:40
DX: K59.00 Constipation, unspecified (principal); E11.65 Type 2 diabetes mellitus with hyperglycemia; I63.9 Cerebral infarction, unspecified; I25.2 Old myocardial infarction; H40.9 Unspecified glaucoma; Z79.4 Long term (current) use of insulin
CPT/HCPCS: 36415; 74020; 80053; 82962; 83690; 84484; 85025; 93005; 93010; 96361; 96374; 96376; 99285; J7040; J1815